=== PATIENT | male | born 1970 | race Caucasian/White ===

== ENCOUNTER 2024-05-01 01:57 | Outpatient (CLI) | payer BC, SELFPAY ==
--- NOTE | 2024-05-01 10:08 | DI.MRI_ITS ---
Exam(s) MR LOWER JOINT LT WO EXAM: MR LOWER JOINT LT WO CLINICAL HISTORY: PAIN LEFT KNEE M25.562 SPRAIN KNEE S83.8X9A. TECHNIQUE: Multiplanar multisequence MRI was performed. COMPARISON: No exams were available for comparison FINDINGS: Exam is limited by the patient's body habitus. The soft tissues are not able to be fully included in the field of view. BONES: There is no fracture or contusion pattern. There is an enchondroma the distal femoral metaphys is. JOINTS: A small joint effusion is present. Articular cartilage: Patellofemoral joint: Articular cartilage is thin down to bone at the lateral patellar facet. Medial femoral tibial joint: Articular cartilage is unremarkable. Lateral femoral tibial joint: Articular cartilage is unremarkable. LIGAMENTS/TENDONS: Anterior Cruciate: Unremarkable. Posterior Cruciate: Unremarkable. Medial Collateral:Surrounding fluid but no visible tear.. Lateral Collateral ligament complex: Unremarkable. Extensor mechanism: Unremarkable. Medial retinaculum: Unremarkable. Lateral retinaculum: Unremarkable. Popliteus: Unremarkable. MENISCI: The medial meniscus shows a defect at the apex of the posterior horn. There is also abnormal signal extending into the body. The lateral meniscus is unremarkable. MUSCLES: Unremarkable. SOFT TISSUES: Soft tissue edema greater anteriorly. IMPRESSION: Tears of the body and posterior horn of the medial meniscus. Medial collateral ligament sprain. Patellar chondromalacia. DATA REPOSITORY:
== END 2024-05-01 02:17 ==
PROVIDERS: PCP Nurse Practitioner Family; Visit Provider Nurse Practitioner Family
DX: M23.222 Derangement of posterior horn of medial meniscus due to old tear or injury, left knee (principal)
CPT/HCPCS: 73721

== ENCOUNTER 2024-06-13 10:15 | Outpatient (CLI) | payer BC, SELFPAY ==
--- NOTE | 2024-06-13 08:30 | DI.RAD_ITS ---
Exam(s) XR KNEE LT 3V AP,LAT,ANATOLIY EXAM: XR KNEE LT 3V AP,LAT,ANATOLIY CLINICAL HISTORY: LEFT KNEE PAIN. TECHNIQUE: 2D digital imaging was performed of the left knee. Three images were obtained. Merchant ,AP and lateral views were obtained. COMPARISON: MR MR LOWER JOINT LT WO from 05/01/2024 FINDINGS: BONES: No acute fracture is present. No bony destructive lesion is seen. There is an enthesophyte at the superior patella. There is a sclerotic lesion seen centrally in the distal metaphysis of the le ft femur. This corresponds to the lesion seen on the MRI from 05/01/2024. This is most suggestive of a benign lesion such as an enchondroma. JOINTS: The knee is normally aligned. There is a small joint effusion. No loose body. SOFT TISSUE: Normal. IMPRESSION: 1. No acute abnormality. 2. Small suprapatellar joint effusion. 3. Sclerotic lesion seen in the distal femoral metaphysis most suggestive of a benign lesion such as an enchondroma. This corresponds to the finding seen on the MRI examination. DATA REPOSITORY: RADIATION DOSE DELIVERED:
== END 2024-06-13 10:16 | disposition home or self-care (01) ==
LOC: DIORS 10:16
PROVIDERS: PCP Nurse Practitioner Family; Visit Provider Student in an Organized Health Care Education/Training Program
DX: M25.562 Pain in left knee (principal); S83.242A Other tear of medial meniscus, current injury, left knee, initial encounter
CPT/HCPCS: 73562